=== PATIENT | female | born 1970 | race Caucasian/White ===

== ENCOUNTER 2020-11-11 17:28 | Emergency (ER) | payer BC ==
--- NOTE | 2020-11-11 18:42 | EDM.PDOC ---
ED HPI GENERAL MEDICAL PROBLEM - General Chief Complaint: Neurological Problem Stated Complaint: ARM PAIN/SYNCOPE/VISON DISTURBANCE Time Seen by Provider: 11/11/20 18:22 Source of Information: Reports: Patient, RN Notes Reviewed History Limitations: Reports: No Limitations - History of Present Illness INITIAL COMMENTS - FREE TEXT/NARRATIVE: Patient is a 50-year-old female who presents to the ER for the evaluation of her left arm pain. Patient notes she was a passenger in a car, at around 3:30 PM, when she got a sudden intense sharp pain in her left upper inner arm, patient states after the pain, she had an episode of syncope. Where she passed out for less than 1 minute. Patient states that she was eating a ham sandwich prior to this. She notes that she has not been doing any strenuous activity prior to this. Notes that she recently had her physical, by Dr. Parks, and she notes everything was fine and went well. She is not having any fevers or chills, cough or shortness of breath, nausea/vomiting/diarrhea. Patient notes that she has pain in her right shoulder, due to a possible tear, but she has not had any musculoskeletal injury to the left arm/shoulder. Denying any chest pain, or any pain in her neck or otherwise. Patient is symptom-free at this time. - Related Data Allergies Allergy/AdvReac Type Severity Reaction Status Date / Time Tetanus Vaccines and Toxoid Allergy Severe Swelling Verified 11/11/20 18:17 Home Meds: Home Meds . 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 ED EXAM, GENERAL - Physical Exam Exam: See Below Exam Limited By: No Limitations General Appearance: Alert, WD/WN, No Apparent Distress Respiratory/Chest: No Respiratory Distress, Lungs Clear, Normal Breath Sounds, No Accessory Muscle Use, Chest Non-Tender Cardiovascular: Normal Peripheral Pulses, Regular Rate, Rhythm, No Edema GI/Abdominal: Normal Bowel Sounds, Soft, Non-Tender, No Distention, No Mass Extremities: Normal Inspection, Normal Range of Motion, Non-Tender, Normal Capillary Refill Neurological: Alert, Oriented, Normal Cognition, No Motor/Sensory Deficits Psychiatric: Normal Affect, Normal Mood Skin Exam: Warm, Dry, Intact, Normal Color, No Rash #1 Interpretation EKG Date: 11/11/20 Time: 18:43 Rhythm: NSR Rate (Beats/Min): 84 [place]: Normal P-Wave: Present QRS: Normal ST-T: Normal QT: Normal Comparison: NA - No Prior EKG EKG Interpretation Comments: No obvious ischemia or acute ST changes noted, reviewed by myself and Dr. Jennifer estrada. Course - Vital Signs Last Recorded V/S: Last Vital Signs Temp 98 F 11/11/20 18:11 Pulse 95 11/11/20 18:11 Resp 16 11/11/20 18:11 BP 133/77 11/11/20 18:11 Pulse Ox 97 11/11/20 18:11 - Orders/Labs/Meds Labs: Laboratory Tests 11/11/20 11/11/20 Range/Units 18:50 18:50 WBC 9.85 (3.98-10.04) K/mm3 RBC 4.47 (3.98-5.22) M/mm3 Hgb 13.1 (11.2-15.7) gm/dl Hct 40.5 (34.1-44.9) % MCV 90.6 (79.4-94.8) fl MCH 29.3 (25.6-32.2) pg MCHC 32.3 (32.2-35.5) g/dl RDW Std Deviation 42.5 (36.4-46.3) fL Plt Count 334 (182-369) K/mm3 MPV 8.8 L (9.4-12.3) fl Neut % (Auto) 59.4 (34.0-71.1) % Lymph % (Auto) 29.2 (19.3-51.7) % Bledsoe % (Auto) 9.5 (4.7-12.5) % Eos % (Auto) 1.4 (0.7-5.8) Baso % (Auto) 0.2 (0.1-1.2) % Neut # (Auto) 5.84 (1.56-6.13) K/mm3 Lymph # (Auto) 2.88 (1.18-3.74) K/mm3 Bledsoe # (Auto) 0.94 H (0.24-0.36) K/mm3 Eos # (Auto) 0.14 (0.04-0.36) K/mm3 Baso # (Auto) 0.02 (0.01-0.08) K/mm3 Sodium 145 (136-145) mEq/L Potassium 3.9 (3.5-5.1) mEq/L Chloride 108 H (98-107) mEq/L Carbon Dioxide 29 (21-32) mEq/L Anion Gap 11.9 (5-15) BUN 12 (7-18) mg/dL Creatinine 0.7 (0.55-1.02) mg/dL Est Cr Clr Drug Dosing 79.54 mL/min Estimated GFR (MDRD) > 60 (>60) mL/min BUN/Creatinine Ratio 17.1 (14-18) Glucose 82 (70-99) mg/dL Calcium 9.6 (8.5-10.1) mg/dL Magnesium 1.9 (1.8-2.4) mg/dL Total Bilirubin 0.3 (0.2-1.0) mg/dL AST 12 L (15-37) U/L ALT 22 (14-59) U/L Alkaline Phosphatase 81 (46-116) U/L Troponin I < 0.017 (0.00-0.056) ng/mL Total Protein 7.2 (6.4-8.2) g/dl Albumin 3.6 (3.4-5.0) g/dl Globulin 3.6 gm/dL Albumin/Globulin Ratio 1.0 (1-2) - Re-Assessments/Exams Free Text/Narrative Re-Assessment/Exam: 11/11/20 18:41 Patient presents to the ER for the evaluation of her left arm pain. As far as musculoskeletal checkup, she is intact, there is no weakness apparent in the left arm. Likely the patient could had a vasovagal reaction to the pain, and had a small episode of loss of consciousness. States that she is symptom-free at this time however she and family member concerned about the possibility of any heart involvement, so we will get some basic labs to include a CBC, CMP, troponin and EKG for ongoing management. 11/11/20 19:31 CMP, troponin are unremarkable for [facility]'s purposes. EKG demonstrates no acute ST changes or other abnormalities that would be worrisome for today's purposes. Again it is likely that this could have been some sort of nerve pain or discomfort, and the patient had more of a vasovagal reaction to the pain, as there is no other immediate explanation. We will have her follow-up with Dr. Parks for symptomatic management, and possibility of prolonged cardiac monitoring if symptoms seem to persist. Departure - Departure Time of Disposition: 19:32 Disposition: Home, Self-Care 01 Condition: Good Clinical Impression: Left upper arm pain, Vasovagal syncope - Discharge Information *PRESCRIPTION DRUG MONITORING PROGRAM REVIEWED*: No *COPY OF PRESCRIPTION DRUG MONITORING REPORT IN PATIENT MINGO: No Instructions: Syncope, [id number] Referrals: Abby Parks MD [Primary Care Provider] - Forms: ED Department Discharge Additional Instructions: You were evaluated in ER today for your left upper arm pain. Thorough clinical evaluation demonstrates no focal abnormalities, laboratory, EKG evaluation are also unremarkable for any cardiac etiology that could have been the cause of your upper arm pain. It is thought likely that you had a vasovagal syncope/reaction when you experience the pain in your upper left arm. This caused you to have a brief loss of consciousness. You were asymptomatic when you presented to the ER, and have remained asymptomatic while being in the ER. The pain is thought likely due to nerve pain at this time. As etiology of the upper arm pain is somewhat undetermined at [facility]'s visit, highly recommend you follow-up with your regular care provider for ongoing amadou solano, to see if she would deem it appropriate to do any sort of ambulatory cardiac monitoring like Holter monitoring or otherwise that could brick picker an arrhythmia, or anything else that would have caused a syncopal episode. Do not hesitate to return to the ER at any time if symptoms change or worsen. Sepsis Event Note (ED) - Evaluation Sepsis Screening Result: No Definite Risk - Focused Exam Vital Signs: Vital Signs Temp Pulse Resp BP Pulse Ox 11/11/20 18:11 98 F 95 16 133/77 97
== END 2020-11-11 19:50 | disposition home or self-care (01) ==
LOC: JD.ED 17:28
DX: M79.622 Pain in left upper arm (principal); R55 Syncope and collapse; Z88.7 Allergy status to serum and vaccine
CPT/HCPCS: 36415; 80053; 83735; 84484; 85025; 93005; 93010; 99283; 99284-25

== ENCOUNTER 2020-11-23 09:38 | Emergency (ER) | payer BC | END 2020-11-23 09:53 | LOC: JD.ED 09:38 | DX: Z53.21 Procedure and treatment not carried out due to patient leaving prior to being seen by health care provider (principal) ==